=== PATIENT | female | born 1950 | race Two or more races ===

== ENCOUNTER 2022-06-14 21:43 | Inpatient (IN) | payer MEDICARE, MEDICAID ==
[~2022-06-14] VITALS: Ht 160 cm; Wt 79.2 kg
[2022-06-14 23:30] LABS: Alanine Aminotransferase 34 U/L (13-56); Albumin 3.1 g/dL (3.4-5.0); Anion Gap 9 (5-15); Aspartate Aminotransferase 42 U/L (15-37); BUN/Creatinine Ratio 13.1; Blood Alcohol < 3.0 mg/dL (0-5); Blood Urea Nitrogen 20 mg/dL (7-18); Calcium 9.5 mg/dL (8.5-10.1); Carbon Dioxide 28 mmol/L (21-32); Chloride 107 mmol/L (98-107); GFR African American 43 mL/min; GFR Non-African American 36 mL/min; Glucose 188 mg/dL (74-106); Potassium 5.2 mmol/L (3.5-5.1); Sodium 144 mmol/L (136-145)
[2022-06-14 23:31] LABS: Basophils # (auto) 0 10 ^3/uL (0-0.2); Basophils % (auto) 0.4 % (0.0-2.0); Eosinophils # (auto) 0 10 ^3/uL (0-0.8); Eosinophils % (auto) 0.1 % (0.0-7.0); Hemoglobin 15.8 g/dL (12.2-16.2); Lymphocytes # (auto) 1.4 10 ^3/uL (0.4-5.4); Lymphocytes % (auto) 21.5 % (10.0-50.0); Mean Corpuscular Hemoglobin 29.9 pg (28.0-32.0); Mean Corpuscular Hgb Conc. 32.3 g/dL (32.0-36.0); Mean Corpuscular Volume 92.6 fL (80.0-100.0); Monocytes # (auto) 0.9 10 ^3/uL (0-1.3); Monocytes % (auto) 14.5 % (0.0-12.0); Neutrophils # (auto) 4.1 10 ^3/uL (1.6-8.6); Neutrophils % (auto) 63.5 % (37.0-80.0); Nucleated Red Blood Cells % 0.1 %; Red Blood Cells 5.29 10^6/uL (4.0-5.20); Red Cell Distribution Width 14.3 % (11.8-14.3); White Blood Cell 6.5 10^3/uL (4.4-10.8)
[2022-06-14 23:32] LABS: Alkaline Phosphatase 90 U/L (45-117); Bilirubin, Total 0.3 mg/dL (0.2-1.0); Total Protein 6.7 g/dL (6.4-8.2)
[2022-06-14 23:35] LABS: Lactic Acid w/Reflex 2.4 mmol/L (0.4-2.0)
[2022-06-14] MEDS ORDERED: LACTATED RINGER'S 1,000 ML IV ONE (23:45)
[2022-06-15] MEDS ORDERED: InsuLIN REG 1unit/0.01ml Soln (100units/ml) IV ONE (05:30)
[2022-06-15] MEDS ORDERED: DEXTROSE (50%) 50ML SYRG IV ONE (05:30)
[2022-06-15] MEDS ORDERED: NITROGLYCERIN 0.4 MG SL TAB SL PRN (06:00)
[2022-06-15] MEDS ORDERED: ONDANSETRON HCL 4 MG/2 ML VIAL IV PRN (06:00)
[2022-06-15] MEDS ORDERED: DOCUSATE SOD 100 MG CAP PO PRN (06:00)
[2022-06-15] MEDS: SODIUM CHLOR 0.9% PF (SALINE LOCK) 10ML VIAL/SYR IV SCH ×3 (06:00→22:00)
[2022-06-15] MEDS ORDERED: DEXTROSE (50%) 50ML SYRG IV PRN (06:00)
[2022-06-15] MEDS ORDERED: MORPHINE SULFATE INJ 2 MG/ml SYRG IV PRN (06:00)
[2022-06-15] MEDS: InsuLIN REG 1unit/0.01ml Soln (100units/ml) SC SCH ×4 (06:49→22:00)
[2022-06-15] MEDS: ACCU-CHEK COMFORT CURVE STRIP VI SCH ×4 (06:52→22:00)
[2022-06-15 07:07] LABS: Basophils # (auto) 0 10 ^3/uL (0-0.2); Basophils % (auto) 0.6 % (0.0-2.0); Eosinophils # (auto) 0 10 ^3/uL (0-0.8); Eosinophils % (auto) 0.1 % (0.0-7.0); Hematocrit 44.7 % (36.0-46.0); Hemoglobin 14.4 g/dL (12.2-16.2); Lymphocytes # (auto) 1.7 10 ^3/uL (0.4-5.4); Lymphocytes % (auto) 35.5 % (10.0-50.0); Mean Corpuscular Hemoglobin 29.6 pg (28.0-32.0); Mean Corpuscular Hgb Conc. 32.1 g/dL (32.0-36.0); Mean Corpuscular Volume 92.3 fL (80.0-100.0); Monocytes # (auto) 0.5 10 ^3/uL (0-1.3); Monocytes % (auto) 9.5 % (0.0-12.0); Neutrophils # (auto) 2.6 10 ^3/uL (1.6-8.6); Neutrophils % (auto) 54.3 % (37.0-80.0); Nucleated Red Blood Cells % 0.1 %; Red Blood Cells 4.85 10^6/uL (4.0-5.20); Red Cell Distribution Width 14.4 % (11.8-14.3); White Blood Cell 4.7 10^3/uL (4.4-10.8)
[2022-06-15 07:13] LABS: Albumin 2.8 g/dL (3.4-5.0); Potassium 3.5 mmol/L (3.5-5.1)
[2022-06-15 07:17] LABS: Alcohol, Urine < 3.0 mg/dL (0-10); Amphetamine Screen, Urine NEGATIVE (NEGATIVE); Barbiturate Scree,Urine NEGATIVE (NEGATIVE); Benzodiazephine Screen, Urine NEGATIVE (NEGATIVE); Cannabinoid Screen, Urine NEGATIVE (NEGATIVE); Cocaine Screen, Urine NEGATIVE (NEGATIVE); Phencyclidine Screen, Urine NEGATIVE (NEGATIVE)
[2022-06-15 07:19] LABS: Bilirubin, Total 0.3 mg/dL (0.2-1.0); Total Protein 6.2 g/dL (6.4-8.2)
[2022-06-15 07:25] LABS: Opiate Scree,Urine NEGATIVE (NEGATIVE)
[2022-06-15 08:01] LABS: Urine Bacteria NONE SEEN /hpf (None Seen); Urine Blood TRACE /uL (Negative); Urine Hyaline Cast FEW /lpf (0 - 2); Urine Mucus FEW (None Seen); Urine Specific Gravity 1.019 (1.001-1.035); Urine WBC 83 /hpf (0 - 5)
[2022-06-15] MEDS: ASPirin 81 mg TAB PO SCH (09:31)
[2022-06-15] MEDS: HYDROcodone-ACET 5/325MG TAB PO PRN ×2 (11:45→13:15)
[2022-06-15] MEDS: SODIUM CHLORIDE 0.9% 1,000 ML IV SCH ×2 (13:54→23:30)
[2022-06-15] MEDS: ATORVASTATIN 20 MG TAB PO SCH (22:44)
[2022-06-16 05:14] LABS: Basophils # (auto) 0 10 ^3/uL (0-0.2); Basophils % (auto) 0.7 % (0.0-2.0); Eosinophils # (auto) 0 10 ^3/uL (0-0.8); Eosinophils % (auto) 0.2 % (0.0-7.0); Hematocrit 44.3 % (36.0-46.0); Hemoglobin 14.4 g/dL (12.2-16.2); Lymphocytes # (auto) 1.7 10 ^3/uL (0.4-5.4); Lymphocytes % (auto) 30.8 % (10.0-50.0); Mean Corpuscular Hemoglobin 29.9 pg (28.0-32.0); Mean Corpuscular Hgb Conc. 32.5 g/dL (32.0-36.0); Mean Corpuscular Volume 91.9 fL (80.0-100.0); Monocytes # (auto) 0.9 10 ^3/uL (0-1.3); Monocytes % (auto) 15.5 % (0.0-12.0); Neutrophils % (auto) 52.8 % (37.0-80.0); Red Blood Cells 4.82 10^6/uL (4.0-5.20); Red Cell Distribution Width 14.1 % (11.8-14.3); White Blood Cell 5.7 10^3/uL (4.4-10.8)
[2022-06-16 05:38] LABS: Albumin 3.2 g/dL (3.4-5.0); Calcium 9.5 mg/dL (8.5-10.1); Potassium 3.9 mmol/L (3.5-5.1)
[2022-06-16 05:40] LABS: BUN/Creatinine Ratio 19.5; Bilirubin, Total 0.4 mg/dL (0.2-1.0)
[2022-06-16] MEDS: InsuLIN REG 1unit/0.01ml Soln (100units/ml) SC SCH ×4 (07:00→22:00)
[2022-06-16] MEDS: ACCU-CHEK COMFORT CURVE STRIP VI SCH ×4 (07:04→22:00)
[2022-06-16] MEDS: SODIUM CHLOR 0.9% PF (SALINE LOCK) 10ML VIAL/SYR IV SCH ×3 (07:30→22:00)
[2022-06-16] MEDS: SODIUM CHLORIDE 0.9% 1,000 ML IV SCH ×2 (10:42→19:30)
[2022-06-16] MEDS: ASPirin 81 mg TAB PO SCH (10:42)
[2022-06-16] MEDS ORDERED: FLUT50SP NAS (16:33)
[2022-06-16] MEDS ORDERED: ATOR40TA52 (16:33)
[2022-06-16] MEDS ORDERED: METO-289 PO (16:33)
[2022-06-16] MEDS ORDERED: BENA5TAB9 PO (16:33)
[2022-06-16] MEDS ORDERED: BENZ100C97 PO (16:33)
[2022-06-16 22:00] VITALS: BP 109/73
[2022-06-16] MEDS: ATORVASTATIN 20 MG TAB PO SCH (22:00)
[2022-06-16] MEDS: ACETAMINOPHEN 325 MG TAB PO PRN (22:57)
[2022-06-17 05:00] VITALS: BP 109/73
[2022-06-17] MEDS: InsuLIN REG 1unit/0.01ml Soln (100units/ml) SC SCH ×2 (05:15→05:22)
[2022-06-17] MEDS: SODIUM CHLORIDE 0.9% 1,000 ML IV SCH (05:23)
[2022-06-17] MEDS: SODIUM CHLOR 0.9% PF (SALINE LOCK) 10ML VIAL/SYR IV SCH (06:00)
[2022-06-17] MEDS: ACCU-CHEK COMFORT CURVE STRIP VI SCH (06:34)
[2022-06-17 08:00] VITALS: BP 108/64
[2022-06-17] MEDS ORDERED: MULTIPLE VITAMIN TAB PO ONE (11:00)
[2022-06-17] MEDS ORDERED: DOXYCYCLINE 100 MG TAB/CAP PO ONE (11:00)
[2022-06-17] MEDS ORDERED: methylPREDNISolone 4 MG TAB PO ONE (11:00)
[2022-06-17 12:00] VITALS: BP 121/70
[2022-06-17] MEDS: ASPirin 81 mg TAB PO SCH (12:33)
[2022-06-17] MEDS: ACETAMINOPHEN 325 MG TAB PO PRN (12:34)
[2022-06-17 16:00] VITALS: BP 104/66
[2022-06-17 22:00] VITALS: BP 126/72
[2022-06-17] MEDS: methylPREDNISolone 4 MG TAB PO SCH (22:00)
[2022-06-17] MEDS: ATORVASTATIN 20 MG TAB PO SCH (22:12)
[2022-06-17] MEDS: DOXYCYCLINE 100 MG TAB/CAP PO SCH (22:12)
[2022-06-18 05:00] VITALS: BP 119/60
[2022-06-18 08:00] VITALS: BP 101/75
[2022-06-18 09:00] VITALS: BP 101/75
[2022-06-18] MEDS: ASPirin 81 mg TAB PO SCH (09:10)
[2022-06-18] MEDS: methylPREDNISolone 4 MG TAB PO SCH (09:10)
[2022-06-18] MEDS: DOXYCYCLINE 100 MG TAB/CAP PO SCH (09:10)
[2022-06-18] MEDS ORDERED: MULTIPLE VITAMIN TAB PO SCH (10:00)
[2022-06-18 13:00] VITALS: BP 125/84
[2022-06-18 17:00] VITALS: BP 143/86
[2022-06-18 17:27] VITALS: BP 143/86
== END 2022-06-18 18:24 | disposition home or self-care (01) | DRG 422 ==
LOC: ER 21:43 → EDBD 21:43 → TELE 06-15 06:06 → TELE-CENTR 06-16 15:30
PROVIDERS: ADMIT Nurse Practitioner Family; ATTEND Student in an Organized Health Care Education/Training Program
DX: E86.0 Dehydration (principal); G93.41 Metabolic encephalopathy; U07.1 COVID-19; N17.9 Acute kidney failure, unspecified; E11.22 Type 2 diabetes mellitus with diabetic chronic kidney disease; J96.11 Chronic respiratory failure with hypoxia; I48.20 Chronic atrial fibrillation, unspecified; E88.09 Other disorders of plasma-protein metabolism, not elsewhere classified; E11.65 Type 2 diabetes mellitus with hyperglycemia; I50.9 Heart failure, unspecified; I13.0 Hypertensive heart and chronic kidney disease with heart failure and stage 1 through stage 4 chronic kidney disease, or unspecified chronic kidney disease; J44.9 Chronic obstructive pulmonary disease, unspecified; E87.5 Hyperkalemia; N18.9 Chronic kidney disease, unspecified; E78.5 Hyperlipidemia, unspecified; H91.90 Unspecified hearing loss, unspecified ear; E78.00 Pure hypercholesterolemia, unspecified; Z79.01 Long term (current) use of anticoagulants
CPT/HCPCS: 36415; 71045; 80053; 80307; 80320; 81001; 82962; 83036; 83605; 83735; 83880; 84484; 85025; 87426; 93005; 93306; 96361; 96374; 96375; 99291; G0378; J1815